=== PATIENT | male | born 1965 | race Two or more races ===

== ENCOUNTER 2017-07-26 18:41 | Emergency (ER) | payer MEDICAID ==
[~2017-07-26] VITALS: Ht 177.8 cm; Wt 110.0 kg
[~2017-07-26 18:41] MED LIST: HYDR-569 PO
[2017-07-26 21:56] VITALS: BP 128/62
== END 2017-07-26 22:08 | disposition home or self-care (01) ==
LOC: ER 18:41
DX: T59.891A Toxic effect of other specified gases, fumes and vapors, accidental (unintentional), initial encounter (principal); S80.212A Abrasion, left knee, initial encounter; E11.9 Type 2 diabetes mellitus without complications; G89.29 Other chronic pain; F12.10 Cannabis abuse, uncomplicated; F15.10 Other stimulant abuse, uncomplicated; Z86.14 Personal history of Methicillin resistant Staphylococcus aureus infection; Z59.0 Homelessness; Z98.890 Other specified postprocedural states; Z79.899 Other long term (current) drug therapy; X58.XXXA Exposure to other specified factors, initial encounter; Y93.89 Activity, other specified; Y92.89 Other specified places as the place of occurrence of the external cause; Y99.8 Other external cause status
CPT/HCPCS: 99284; J7030

== ENCOUNTER 2017-11-03 14:36 | Inpatient (IN) | payer MEDICAID ==
[~2017-11-03] VITALS: Ht 180.3 cm; Wt 140.0 kg
[2017-11-03] MEDS ORDERED: CefTRIAXone 2gm/D5W 50ml 50 ML IV ONE (15:15)
[2017-11-03] MEDS ORDERED: vancomycin/NS 1 GM ADD-VANTAGE 250 ML IV ONE (15:15)
[2017-11-03] MEDS ORDERED: normal saline 1000ML IV soln IVB ONE (15:15)
[2017-11-03 15:16] LABS: BASOPHILS % (AUTO) 0.1 % (0-1); EOSINOPHILS % (AUTO) 0.2 % (0-6); HEMATOCRIT 38.5 % (42.0-52.0); HEMOGLOBIN 13.3 g/dl (14.0-17.9); LYMPHOCYTES # (AUTO) 0.4 X10'3 (1.1-4.8); LYMPHOCYTES % (AUTO) 5.9 % (21-51); MEAN CORPUSCULAR HEMOGLOBIN 29.8 PG (27.0-31.0); MEAN CORPUSCULAR HGB CONC 34.4 % (33.0-36.5); MEAN CORPUSCULAR VOLUME 86.8 FL (78-98); MEAN PLATELET VOLUME 7.7 FL (7.4-10.4); MONOCYTES # (AUTO) 0.1 X10'3 (0-0.9); MONOCYTES % (AUTO) 1.7 % (2-12); NEUTROPHILS # (AUTO) 6.3 X10'3 (1.8-7.7); NEUTROPHILS % (AUTO) 92.1 % (42-75); PLATELET COUNT 169 X10'3 (140-440); RED BLOOD COUNT 4.44 X10'6 (4.70-6.10); RED CELL DISTRIBUTION WIDTH 14.3 % (11.5-14.5); WHITE BLOOD COUNT 6.9 X10'3 (4.5-11.0)
[2017-11-03 15:32] LABS: INR 1.1 INR; PARTIAL THROMBOPLASTIN TIME 28 SECONDS (22-32); PROTHROMBIN TIME 11.5 SECONDS (9.0-12.0)
[2017-11-03 15:40] LABS: ALANINE AMINOTRANSFERASE 17 U/L (12-78); ALBUMIN 2.8 G/DL (3.4-5.0); ALBUMIN/GLOBULIN RATIO 0.5 (1.1-1.5); ALKALINE PHOSPHATASE 117 IU/L (46-116); ANION GAP 8 (8-16); ASPARTATE AMINO TRANSFERASE 27 U/L (10-37); BILIRUBIN,TOTAL 2.3 MG/DL (0.1-1.0); BLOOD UREA NITROGEN 11 MG/DL (7-18); BUN/CREATININE RATIO 9.9 (5.4-32.0); CALCIUM 8.9 MG/DL (8.5-10.1); CHLORIDE 98 MMOL/L (99-107); CREATININE 1.11 MG/DL (0.60-1.10); GLUCOSE 193 MG/DL (70-104); POTASSIUM 3.6 MMOL/L (3.5-5.1); SODIUM 131 MMOL/L (135-145); TOTAL CARBON DIOXIDE 24.9 MMOL/L (24-32); TOTAL PROTEIN 8.4 G/DL (6.4-8.2); eGFR 70 ML/MIN
[2017-11-03 16:00] LABS: TOTAL CELLS COUNTED 100
[2017-11-03 16:01] LABS: ANISOCYTOSIS FEW; PLATELET ESTIMATE NORMAL; POLYCHROMASIA FEW
[2017-11-03 16:59] LABS: ETHANOL < 0.010 GM/DL (0.0-0.010)
[2017-11-03] MEDS ORDERED: BACDS PO (18:20)
[2017-11-03] MEDS ORDERED: INSU100V11 SQ (18:20)
[2017-11-03] MEDS ORDERED: MELO-100 PO (18:20)
[2017-11-03] MEDS ORDERED: MESSAGE TO PHARMACY PO ONE (18:55)
[2017-11-03] MEDS ORDERED: glucagon, human recombinant 1mg kit SUBCUT PRN (18:55)
[2017-11-03] MEDS ORDERED: potassium Cl 20 mEq SR tablet PO PRN (18:55)
[2017-11-03] MEDS ORDERED: magnesium 4gm in 100ml NS 100 ML IV PRN (18:55)
[2017-11-03] MEDS ORDERED: potassium Cl 40MEQ/NS 500ml 500 ML IV PRN ×2 (18:55)
[2017-11-03] MEDS ORDERED: dextrose ORAL solution 15 GM/59 ML bottle PO PRN ×2 (18:55)
[2017-11-03] MEDS ORDERED: magnesium 1gm/100ml D5W IVPB 100 ML IV PRN (18:55)
[2017-11-03] MEDS ORDERED: magnesium Cl slow-release 64mg tablet PO PRN (18:55)
[2017-11-03] MEDS ORDERED: magnesium hydroxide 30ml (MOM) UD suspension PO PRN (18:55)
[2017-11-03] MEDS ORDERED: HYDROcodone/acetaminophen 5mg/325mg tablet PO PRN (18:55)
[2017-11-03] MEDS ORDERED: ondansetron/PF 4mg/2ml inj IV PRN (18:55)
[2017-11-03] MEDS ORDERED: mag hydrox/Alum hydrox/simeth 30ml oral suspension PO PRN (18:55)
[2017-11-03] MEDS ORDERED: morphine 4 MG/ML inj SYRINge IV PRN (18:55)
[2017-11-03] MEDS ORDERED: acetaminophen 325mg tablet PO PRN ×2 (18:55)
[2017-11-03] MEDS ORDERED: dextrose 50%-water 50ml dispensing syringe IV PRN ×2 (18:55)
[2017-11-03 19:26] LABS: CLARITY,URINE SLIGHTLY CLOUDY (Clear); COLOR,URINE AMBER (Yellow); GLUCOSE, URINE 100 mg/dl (Neg); KETONES,URINE NEGATIVE (Neg); LEUKOCYTE ESTERASE ,URINE NEGATIVE (Neg); NITRITES, URINE NEGATIVE (Neg); OCCULT BLOOD,URINE LARGE (Neg); PH,URINE 5.5 (4.8-8.0); PROTEIN,URINE >=300 mg/dl (Neg)
[2017-11-03 19:27] LABS: UA COLLECTION TYPE CLN CATCH MIDSTREAM
[2017-11-03 19:33] LABS: URINE AMPHETAMINE SCREEN POSITIVE (Neg); URINE BARBITUATE SCREEN NEGATIVE (Neg); URINE BENZODIAZEPINES SCREEN NEGATIVE (Neg); URINE CANNABINOID SCREEN POSITIVE (Neg); URINE COCAINE SCREEN NEGATIVE (Neg); URINE METHADONE SCREEN NEGATIVE (Neg); URINE OPIATE SCREEN NEGATIVE (Neg); URINE PHENCYCLIDINE SCREEN NEGATIVE (Neg)
[2017-11-03 19:38] LABS: HEMOGLOBIN A1C 6.6 % (4.5-6.2)
[2017-11-03 19:44] LABS: COARSE GRANULAR CAST 0-3 /LPF (NEGATIVE); MUCUS STRANDS MANY /LPF (Neg); SQUAMOUS EPITHELIAL CELL,UR MODERATE /LPF (FEW)
[2017-11-03 19:46] LABS: AMORPHOUS URATES 2+; BACTERIA,URINE 1+ /HPF (Neg)
[2017-11-03] MEDS: heparin, porcine 5000 units/ml vial SQ SCH (20:17)
[2017-11-03] MEDS: insulin glargine (Lantus) pen - multi-dose SQ SCH (21:00)
[2017-11-03] MEDS ORDERED: temazepam 15mg capsule PO PRN (21:00)
[2017-11-03 22:00] VITALS: BP 117/62
[2017-11-04] VITALS: BP 101/54
[2017-11-04 05:57] LABS: ALBUMIN 1.9 G/DL (3.4-5.0); ANION GAP 5 (8-16); BLOOD UREA NITROGEN 11 MG/DL (7-18); BUN/CREATININE RATIO 13.6 (5.4-32.0); CALCIUM 8.1 MG/DL (8.5-10.1); CHLORIDE 103 MMOL/L (99-107); CREATININE 0.81 MG/DL (0.60-1.10); GLUCOSE 163 MG/DL (70-104); MAGNESIUM 1.7 MG/DL (1.5-2.4); POTASSIUM 3.3 MMOL/L (3.5-5.1); SODIUM 135 MMOL/L (135-145); TOTAL CARBON DIOXIDE 26.7 MMOL/L (24-32); eGFR > 90 ML/MIN
[2017-11-04 07:00] VITALS: BP 115/62
[2017-11-04] MEDS: K and/or MAG REPLACEMENT MC SCH (08:00)
[2017-11-04] MEDS: potassium Cl 20 mEq SR tablet PO PRN ×2 (09:13→21:04)
[2017-11-04] MEDS: heparin, porcine 5000 units/ml vial SQ SCH ×2 (09:15→20:00)
[2017-11-04 09:36] LABS: BASOPHILS % (AUTO) 0 % (0-1); EOSINOPHILS % (AUTO) 1.4 % (0-6); HEMATOCRIT 31.5 % (42.0-52.0); HEMOGLOBIN 10.8 g/dl (14.0-17.9); LYMPHOCYTES # (AUTO) 0.2 X10'3 (1.1-4.8); LYMPHOCYTES % (AUTO) 9.8 % (21-51); MEAN CORPUSCULAR HGB CONC 34.3 % (33.0-36.5); MEAN CORPUSCULAR VOLUME 87.5 FL (78-98); MEAN PLATELET VOLUME 7.8 FL (7.4-10.4); MONOCYTES # (AUTO) 0.1 X10'3 (0-0.9); MONOCYTES % (AUTO) 3.2 % (2-12); NEUTROPHILS # (AUTO) 1.9 X10'3 (1.8-7.7); NEUTROPHILS % (AUTO) 85.6 % (42-75); RED BLOOD COUNT 3.59 X10'6 (4.70-6.10); RED CELL DISTRIBUTION WIDTH 14.9 % (11.5-14.5)
[2017-11-04 10:24] LABS: PLATELET COUNT 81 X10'3 (140-440); WHITE BLOOD COUNT 2.2 X10'3 (4.5-11.0)
[2017-11-04] MEDS: morphine 4 MG/ML inj SYRINge IV PRN ×2 (10:33→21:03)
[2017-11-04 11:54] LABS: TOTAL CELLS COUNTED 100
[2017-11-04 11:55] LABS: ANISOCYTOSIS FEW; PLATELET ESTIMATE DECREASED; POLYCHROMASIA FEW; ROULEAUX 1+
[2017-11-04 12:00] VITALS: BP 112/64
[2017-11-04] MEDS ORDERED: iohexol 300mg/ml 100ml inj. ONE (18:13)
[2017-11-04 20:00] VITALS: BP 153/75
[2017-11-04] MEDS: insulin glargine (Lantus) pen - multi-dose SQ SCH (21:00)
[2017-11-05] VITALS: BP 112/59
[2017-11-05 05:44] LABS: HEMATOCRIT 32.4 % (42.0-52.0); HEMOGLOBIN 10.8 g/dl (14.0-17.9); MEAN CORPUSCULAR HEMOGLOBIN 29.5 PG (27.0-31.0); MEAN CORPUSCULAR HGB CONC 33.2 % (33.0-36.5); MEAN CORPUSCULAR VOLUME 88.8 FL (78-98); MEAN PLATELET VOLUME 7.9 FL (7.4-10.4); PLATELET COUNT 84 X10'3 (140-440); RED BLOOD COUNT 3.65 X10'6 (4.70-6.10); RED CELL DISTRIBUTION WIDTH 15.3 % (11.5-14.5); WHITE BLOOD COUNT 1.9 X10'3 (4.5-11.0)
[2017-11-05 06:13] LABS: ALBUMIN 1.8 G/DL (3.4-5.0); ANION GAP 6 (8-16); BLOOD UREA NITROGEN 11 MG/DL (7-18); BUN/CREATININE RATIO 13.9 (5.4-32.0); CALCIUM 8.2 MG/DL (8.5-10.1); CHLORIDE 102 MMOL/L (99-107); CREATININE 0.79 MG/DL (0.60-1.10); GLUCOSE 189 MG/DL (70-104); MAGNESIUM 1.6 MG/DL (1.5-2.4); POTASSIUM 3.7 MMOL/L (3.5-5.1); SODIUM 134 MMOL/L (135-145); TOTAL CARBON DIOXIDE 26.4 MMOL/L (24-32); eGFR > 90 ML/MIN
[2017-11-05 07:13] LABS: PLATELET ESTIMATE DECREASED; TOTAL CELLS COUNTED 100
[2017-11-05 07:14] LABS: ANISOCYTOSIS 1+; POLYCHROMASIA FEW
[2017-11-05 07:15] VITALS: BP 109/43
[2017-11-05] MEDS: K and/or MAG REPLACEMENT MC SCH (08:00)
[2017-11-05] MEDS: heparin, porcine 5000 units/ml vial SQ SCH ×2 (08:00→19:35)
[2017-11-05] MEDS: insulin Lispro (HumaLOG) vial - multi-dose SQ SCH ×3 (10:11→18:52)
[2017-11-05 11:39] VITALS: BP 109/53
[2017-11-05 18:40] VITALS: BP 105/62
[2017-11-05] MEDS: HYDROcodone/acetaminophen 10/325mg tab PO PRN (19:43)
[2017-11-05] MEDS: insulin glargine (Lantus) pen - multi-dose SQ SCH (21:31)
[2017-11-06] VITALS: BP 128/73
[2017-11-06] MEDS: HYDROcodone/acetaminophen 10/325mg tab PO PRN (03:36)
[2017-11-06] MEDS ORDERED: VANCOMYCIN LEVEL IV ONE (04:30)
[2017-11-06 05:22] LABS: BASOPHILS % (AUTO) 0.7 % (0-1); EOSINOPHILS # (AUTO) 0.1 X10'3 (0-0.9); EOSINOPHILS % (AUTO) 4.9 % (0-6); HEMATOCRIT 34.3 % (42.0-52.0); HEMOGLOBIN 11.6 g/dl (14.0-17.9); LYMPHOCYTES # (AUTO) 0.8 X10'3 (1.1-4.8); LYMPHOCYTES % (AUTO) 35.7 % (21-51); MEAN CORPUSCULAR HEMOGLOBIN 29.6 PG (27.0-31.0); MEAN CORPUSCULAR HGB CONC 33.7 % (33.0-36.5); MEAN CORPUSCULAR VOLUME 87.7 FL (78-98); MONOCYTES # (AUTO) 0.1 X10'3 (0-0.9); MONOCYTES % (AUTO) 5.8 % (2-12); NEUTROPHILS # (AUTO) 1.2 X10'3 (1.8-7.7); NEUTROPHILS % (AUTO) 52.9 % (42-75); PLATELET COUNT 118 X10'3 (140-440); RED BLOOD COUNT 3.91 X10'6 (4.70-6.10); RED CELL DISTRIBUTION WIDTH 14.6 % (11.5-14.5); WHITE BLOOD COUNT 2.4 X10'3 (4.5-11.0)
[2017-11-06 05:39] LABS: ANION GAP 3 (8-16); BLOOD UREA NITROGEN 9 MG/DL (7-18); CALCIUM 8.3 MG/DL (8.5-10.1); CHLORIDE 103 MMOL/L (99-107); CREATININE 0.69 MG/DL (0.60-1.10); GLUCOSE 129 MG/DL (70-104); MAGNESIUM 1.7 MG/DL (1.5-2.4); POTASSIUM 3.9 MMOL/L (3.5-5.1); SODIUM 136 MMOL/L (135-145); TOTAL CARBON DIOXIDE 30.5 MMOL/L (24-32); VANCOMYCIN,TROUGH 16.7 UG/ML (6.0-14.0); eGFR > 90 ML/MIN
[2017-11-06 06:22] LABS: GIANT PLATELET FEW; PLATELET ESTIMATE DECREASED; TOTAL CELLS COUNTED 100
[2017-11-06 07:51] VITALS: BP 106/60
[2017-11-06] MEDS: K and/or MAG REPLACEMENT MC SCH (08:00)
[2017-11-06] MEDS: heparin, porcine 5000 units/ml vial SQ SCH ×2 (08:00→19:35)
[2017-11-06] MEDS: insulin Lispro (HumaLOG) vial - multi-dose SQ SCH ×3 (08:40→18:50)
[2017-11-06] MEDS: ciprofloxacin 250mg tablet PO SCH ×2 (13:41→22:09)
[2017-11-06] MEDS: metroNIDAZOLE 500mg tablet PO SCH ×3 (13:41→23:57)
[2017-11-06] MEDS: linezolid 600mg tablet PO SCH ×2 (15:11→19:34)
[2017-11-06 15:37] VITALS: BP 103/66
[2017-11-06] MEDS ORDERED: piperacillin/tazo 4.5gm/100ml 100 ML IV SCH (16:00)
[2017-11-06 18:50] VITALS: BP 106/64
[2017-11-06] MEDS: insulin glargine (Lantus) pen - multi-dose SQ SCH (21:01)
[2017-11-07] VITALS: BP 143/80
[2017-11-07 05:23] LABS: BASOPHILS % (AUTO) 0.5 % (0-1); EOSINOPHILS # (AUTO) 0.2 X10'3 (0-0.9); EOSINOPHILS % (AUTO) 5.4 % (0-6); HEMATOCRIT 36.7 % (42.0-52.0); HEMOGLOBIN 12.3 g/dl (14.0-17.9); LYMPHOCYTES % (AUTO) 34.3 % (21-51); MEAN CORPUSCULAR HEMOGLOBIN 29.3 PG (27.0-31.0); MEAN CORPUSCULAR HGB CONC 33.6 % (33.0-36.5); MEAN CORPUSCULAR VOLUME 87.4 FL (78-98); MEAN PLATELET VOLUME 7.9 FL (7.4-10.4); MONOCYTES # (AUTO) 0.2 X10'3 (0-0.9); MONOCYTES % (AUTO) 5.4 % (2-12); NEUTROPHILS # (AUTO) 1.6 X10'3 (1.8-7.7); NEUTROPHILS % (AUTO) 54.4 % (42-75); PLATELET COUNT 146 X10'3 (140-440); RED CELL DISTRIBUTION WIDTH 14.7 % (11.5-14.5); WHITE BLOOD COUNT 2.9 X10'3 (4.5-11.0)
[2017-11-07 05:43] LABS: ALBUMIN 2.1 G/DL (3.4-5.0); ANION GAP 6 (8-16); BLOOD UREA NITROGEN 12 MG/DL (7-18); BUN/CREATININE RATIO 14.8 (5.4-32.0); CALCIUM 8.9 MG/DL (8.5-10.1); CHLORIDE 100 MMOL/L (99-107); CREATININE 0.81 MG/DL (0.60-1.10); GLUCOSE 121 MG/DL (70-104); MAGNESIUM 1.6 MG/DL (1.5-2.4); POTASSIUM 3.8 MMOL/L (3.5-5.1); SODIUM 134 MMOL/L (135-145); TOTAL CARBON DIOXIDE 27.6 MMOL/L (24-32); eGFR > 90 ML/MIN
[2017-11-07 05:51] LABS: PLATELET ESTIMATE NORMAL; TOTAL CELLS COUNTED 100
[2017-11-07 07:00] VITALS: BP 118/74
[2017-11-07] MEDS: K and/or MAG REPLACEMENT MC SCH (08:00)
[2017-11-07] MEDS: insulin Lispro (HumaLOG) vial - multi-dose SQ SCH (08:45)
[2017-11-07] MEDS: metroNIDAZOLE 500mg tablet PO SCH (08:46)
[2017-11-07] MEDS: linezolid 600mg tablet PO SCH (08:46)
[2017-11-07] MEDS: heparin, porcine 5000 units/ml vial SQ SCH (08:46)
[2017-11-07] MEDS ORDERED: LINE600T32 PO (09:41)
[2017-11-07] MEDS ORDERED: METR500T4 PO (09:41)
[2017-11-07] MEDS ORDERED: CIPR250T4 PO (09:41)
[2017-11-07 11:00] VITALS: BP 118/70
[2017-11-07] MEDS: ciprofloxacin 250mg tablet PO SCH (11:06)
== END 2017-11-07 13:50 | disposition home or self-care (01) | DRG 720 ==
LOC: ER 14:37 → ED HOLD 18:53 → SUR 3N 21:40
PROVIDERS: ADMIT Internal Medicine; ATTEND Internal Medicine
PROC: BQ2S1ZZ Computerized Tomography (CT Scan) of Left Lower Extremity using Low Osmolar Contrast (ICD-10-PCS; principal; 2017-11-04)
PROC: BQ2R1ZZ Computerized Tomography (CT Scan) of Right Lower Extremity using Low Osmolar Contrast (ICD-10-PCS; 2017-11-04)
DX: A40.9 Streptococcal sepsis, unspecified (principal); D69.6 Thrombocytopenia, unspecified; E46 Unspecified protein-calorie malnutrition; Z68.41 Body mass index [BMI] 40.0-44.9, adult; E66.01 Morbid (severe) obesity due to excess calories; K74.60 Unspecified cirrhosis of liver; N39.0 Urinary tract infection, site not specified; B19.20 Unspecified viral hepatitis C without hepatic coma; F12.90 Cannabis use, unspecified, uncomplicated; L03.115 Cellulitis of right lower limb; B95.2 Enterococcus as the cause of diseases classified elsewhere; B96.1 Klebsiella pneumoniae [K. pneumoniae] as the cause of diseases classified elsewhere; B96.5 Pseudomonas (aeruginosa) (mallei) (pseudomallei) as the cause of diseases classified elsewhere; B95.5 Unspecified streptococcus as the cause of diseases classified elsewhere; I25.10 Atherosclerotic heart disease of native coronary artery without angina pectoris; E11.9 Type 2 diabetes mellitus without complications; D64.9 Anemia, unspecified; F15.10 Other stimulant abuse, uncomplicated; L03.116 Cellulitis of left lower limb; G89.29 Other chronic pain; M54.9 Dorsalgia, unspecified; Z59.0 Homelessness; Z95.1 Presence of aortocoronary bypass graft; Z72.89 Other problems related to lifestyle; Z86.14 Personal history of Methicillin resistant Staphylococcus aureus infection
CPT/HCPCS: 36415; 71045; 73701; 80048; 80053; 80202; 80305; 80320; 81001; 82948; 83036; 83605; 83735; 83880; 84145; 85025; 85610; 85730; 87040; 87070; 87077; 87088; 87186; 93306; 96365; 96368; 96374; 97110; 97116; 97530; 99285; A4353; A6209; A6223; A6253; A6255; A6446; A6449; J0696; J1644; J1815; J2270; J2543; J3370; J3490; J7030; Q9967

== ENCOUNTER 2021-04-11 17:27 | Inpatient (IN) | payer MEDICAID ==
[~2021-04-11] VITALS: Ht 177.8 cm; Wt 115.0 kg
[~2021-04-11 17:27] MED LIST changes: +DOXY100C76 PO; +GLYB2.5T4 PO; -HYDR-569 PO; +LEVO500T90 PO; +METF-1203 PO
[2021-04-11] MEDS ORDERED: ondansetron/PF 4mg/2ml inj IV ONE (18:20)
[2021-04-11] MEDS ORDERED: morphine 5 MG/ML injection IV ONE (18:20)
[2021-04-11] MEDS ORDERED: vancomycin/NS 1 GM ADD-VANTAGE 250 ML IV ONE (18:30)
[2021-04-11] MEDS ORDERED: morphine 4 MG/ML inj SYRINge IV ONE (18:30)
[2021-04-11] MEDS ORDERED: piperacillin/tazo 3.375gm/50ml 50 ML IV ONE (18:30)
[2021-04-11 18:35] LABS: BASOPHILS % (AUTO) 0.4 % (0-1); EOSINOPHILS # (AUTO) 0.1 X10'3 (0-0.9); EOSINOPHILS % (AUTO) 2.2 % (0-6); HEMATOCRIT 35.9 % (42.0-52.0); HEMOGLOBIN 11.6 g/dl (14.0-17.9); LYMPHOCYTES # (AUTO) 0.7 X10'3 (1.1-4.8); LYMPHOCYTES % (AUTO) 17.9 % (21-51); MEAN CORPUSCULAR HEMOGLOBIN 23.9 PG (27.0-31.0); MEAN CORPUSCULAR HGB CONC 32.5 g/dL (33.0-36.5); MEAN CORPUSCULAR VOLUME 73.8 FL (78-98); MEAN PLATELET VOLUME 8.6 FL (7.4-10.4); MONOCYTES # (AUTO) 0.5 X10'3 (0-0.9); MONOCYTES % (AUTO) 12.7 % (2-12); NEUTROPHILS # (AUTO) 2.5 X10'3 (1.8-7.7); NEUTROPHILS % (AUTO) 66.8 % (42-75); PLATELET COUNT 100 X10'3 (140-440); RED BLOOD COUNT 4.86 X10'6 (4.70-6.10); RED CELL DISTRIBUTION WIDTH 21.9 % (11.5-14.5); WHITE BLOOD COUNT 3.7 X10'3 (4.5-11.0)
[2021-04-11 18:45] LABS: ALANINE AMINOTRANSFERASE 17 U/L (12-78); ALBUMIN 2.6 G/DL (3.4-5.0); ALBUMIN/GLOBULIN RATIO 0.7 (1.1-1.5); ALKALINE PHOSPHATASE 89 IU/L (46-116); ANION GAP 9 (8-16); ASPARTATE AMINO TRANSFERASE 18 U/L (10-37); BILIRUBIN,TOTAL 3.3 MG/DL (0.1-1.0); BLOOD UREA NITROGEN 6 MG/DL (7-18); BUN/CREATININE RATIO 7.3 (5.4-32.0); CALCIUM 8.2 MG/DL (8.5-10.1); CHLORIDE 99 MMOL/L (99-107); CREATININE 0.82 MG/DL (0.60-1.10); GLUCOSE 307 MG/DL (70-104); MAGNESIUM 1.6 MG/DL (1.5-2.4); SODIUM 136 MMOL/L (135-145); TOTAL CARBON DIOXIDE 28.4 MMOL/L (24-32); TOTAL PROTEIN 6.3 G/DL (6.4-8.2); eGFR > 90 ML/MIN
[2021-04-11] MEDS ORDERED: normal saline 1000ML IV soln IV ONE (19:10)
[2021-04-11 19:56] LABS: ANISOCYTOSIS 3+; LARGE PLATELETS FEW; MICROCYTOSIS 1+; PLATELET ESTIMATE DECREASED
[2021-04-11 19:58] LABS: ELLIPTOCYTES FEW; TEAR DROP CELLS FEW
[2021-04-11] MEDS ORDERED: CEPH500C2 PO ×2 (21:09)
[2021-04-11] MEDS ORDERED: DOXY-411 PO ×2 (21:09)
[2021-04-11] MEDS ORDERED: POTA-207 PO ×2 (21:10)
[2021-04-11] MEDS ORDERED: potassium Cl 20 mEq SR tablet PO STA (21:13)
[2021-04-11] MEDS ORDERED: insulin regular, human 10 units/0.1 ml syringe SQ ONE (21:25)
[2021-04-12] MEDS ORDERED: ondansetron 4mg rapidly disintigrating tab PO PRN (00:15)
[2021-04-12] MEDS ORDERED: acetaminophen 650mg rectal suppository RC PRN (00:15)
[2021-04-12] MEDS ORDERED: potassium CL 10mEq/100ml bag 100 ML IV PRN (00:15)
[2021-04-12] MEDS ORDERED: HYDROcodone/acetaminophen 5mg/325mg tablet PO PRN (00:15)
[2021-04-12] MEDS ORDERED: ipratropium/albuterol 3ml nebule NEB PRN (00:15)
[2021-04-12] MEDS ORDERED: mag hydrox/Alum hydrox/simeth 30ml oral suspension PO PRN (00:15)
[2021-04-12] MEDS ORDERED: diphenhydrAMINE 25mg capsule PO PRN (00:15)
[2021-04-12] MEDS ORDERED: HYDROmorphone inj. 0.5 MG/0.5 ML DISP.SYRIN IV PRN (00:15)
[2021-04-12] MEDS ORDERED: magnesium 4gm in 100ml NS 100 ML IV PRN (00:15)
[2021-04-12] MEDS ORDERED: potassium Cl 20 mEq SR tablet PO PRN (00:15)
[2021-04-12] MEDS ORDERED: morphine 2 MG/ML inj. syringe IV PRN (00:15)
[2021-04-12] MEDS ORDERED: acetaminophen 325mg tablet PO PRN ×2 (00:15)
[2021-04-12] MEDS ORDERED: magnesium Cl slow-release 64mg tablet PO PRN (00:15)
[2021-04-12] MEDS ORDERED: diphenhydrAMINE 50 mg/ml inj IV PRN (00:15)
[2021-04-12] MEDS ORDERED: magnesium hydroxide 30ml (MOM) UD suspension PO PRN (00:15)
[2021-04-12] MEDS ORDERED: bisacodyl 10mg suppository rectal RC PRN (00:15)
[2021-04-12] MEDS ORDERED: ondansetron/PF 4mg/2ml inj IV PRN (00:15)
[2021-04-12] MEDS ORDERED: magnesium 2GM in 50ml NS 50 ML IV PRN (00:15)
[2021-04-12] MEDS ORDERED: glucagon, human recombinant 1mg kit SUBCUT PRN (00:25)
[2021-04-12] MEDS ORDERED: MESSAGE TO PHARMACY PO ONE (00:25)
[2021-04-12] MEDS ORDERED: dextrose ORAL solution 15 GM/59 ML bottle PO PRN ×2 (00:25)
[2021-04-12] MEDS ORDERED: dextrose 50%-water 50ml dispensing syringe IV PRN ×2 (00:25)
[2021-04-12] MEDS: piperacillin/tazo 3.375gm/50ml 50 ML IV SCH ×4 (00:53→23:09)
[2021-04-12] MEDS: normal saline 1000ml 1,000 ML IV SCH ×3 (00:55→17:20)
[2021-04-12 01:14] LABS: HEMOGLOBIN A1C 8.1 % (4.5-6.2)
[2021-04-12 01:20] LABS: PHOSPHORUS 1.9 MG/DL (2.3-4.5)
--- NOTE | 2021-04-12 03:27 | NUR ---
Moved patient to hospital bed w/o problem.
[2021-04-12] MEDS: vancomycin/NS 1 GM ADD-VANTAGE 250 ML IV SCH ×2 (06:00→17:10)
[2021-04-12] MEDS ORDERED: sodium phosphate inj. 15 MMOL in dextrose 5%-water 250 ML IV PRN (06:20)
[2021-04-12] MEDS ORDERED: Neutra Phos packet PO PRN (06:20)
[2021-04-12] MEDS ORDERED: sodium phosphate inj. 30 MMOL in dextrose 5%-water 250 ML IV PRN (06:20)
[2021-04-12] MEDS: docusate sod 100mg capsule PO SCH ×2 (06:40→19:13)
[2021-04-12] MEDS: heparin, porcine 5000 units/ml vial SQ SCH ×2 (07:54→19:21)
[2021-04-12] MEDS: pantoprazole 40mg Tablet.DR PO SCH (07:54)
[2021-04-12] MEDS: K and/or MAG REPLACEMENT MC SCH ×2 (08:14→20:00)
--- NOTE | 2021-04-12 08:28 | NUR ---
BREAKFAST TRAY TO BEDSIDE.
[2021-04-12 08:34] LABS: BASOPHILS % (AUTO) 0.5 % (0-1); EOSINOPHILS # (AUTO) 0.2 X10'3 (0-0.9); EOSINOPHILS % (AUTO) 5.6 % (0-6); HEMATOCRIT 34.1 % (42.0-52.0); LYMPHOCYTES # (AUTO) 0.8 X10'3 (1.1-4.8); LYMPHOCYTES % (AUTO) 26.8 % (21-51); MEAN CORPUSCULAR HEMOGLOBIN 24.2 PG (27.0-31.0); MEAN CORPUSCULAR HGB CONC 32.3 g/dL (33.0-36.5); MEAN CORPUSCULAR VOLUME 75.1 FL (78-98); MEAN PLATELET VOLUME 9.3 FL (7.4-10.4); MONOCYTES # (AUTO) 0.4 X10'3 (0-0.9); MONOCYTES % (AUTO) 12.5 % (2-12); NEUTROPHILS # (AUTO) 1.7 X10'3 (1.8-7.7); NEUTROPHILS % (AUTO) 54.6 % (42-75); PLATELET COUNT 105 X10'3 (140-440); RED BLOOD COUNT 4.54 X10'6 (4.70-6.10); RED CELL DISTRIBUTION WIDTH 22.4 % (11.5-14.5); WHITE BLOOD COUNT 3.1 X10'3 (4.5-11.0)
[2021-04-12 08:51] LABS: APTT 28 SECONDS (22-32)
[2021-04-12 09:04] LABS: ALANINE AMINOTRANSFERASE 12 U/L (12-78); ALBUMIN 2.1 G/DL (3.4-5.0); ALBUMIN/GLOBULIN RATIO 0.6 (1.1-1.5); ALKALINE PHOSPHATASE 68 IU/L (46-116); ANION GAP 8 (8-16); ASPARTATE AMINO TRANSFERASE 19 U/L (10-37); BILIRUBIN,TOTAL 2.5 MG/DL (0.1-1.0); BLOOD UREA NITROGEN 9 MG/DL (7-18); CALCIUM 7.3 MG/DL (8.5-10.1); CHLORIDE 104 MMOL/L (99-107); GLUCOSE 178 MG/DL (70-104); PHOSPHORUS 2.4 MG/DL (2.3-4.5); POTASSIUM 3.4 MMOL/L (3.5-5.1); SODIUM 139 MMOL/L (135-145); TOTAL CARBON DIOXIDE 27.5 MMOL/L (24-32); TOTAL PROTEIN 5.6 G/DL (6.4-8.2); eGFR > 90 ML/MIN
[2021-04-12 09:34] LABS: ANISOCYTOSIS 3+; LARGE PLATELETS FEW; MICROCYTOSIS 1+; PLATELET ESTIMATE DECREASED
[2021-04-12 09:35] LABS: POIKILOCYTOSIS 1+
[2021-04-12 10:26] LABS: CLARITY,URINE CLOUDY (Clear); COLOR,URINE YELLOW (Yellow); GLUCOSE, URINE 500 mg/dl (Neg); KETONES,URINE TRACE mg/dl (Neg); LEUKOCYTE ESTERASE ,URINE TRACE (Neg); NITRITES, URINE NEGATIVE (Neg); OCCULT BLOOD,URINE SMALL (Neg); PROTEIN,URINE 30 mg/dl (Neg)
[2021-04-12 10:32] LABS: UA COLLECTION TYPE URINAL
[2021-04-12 10:34] LABS: WBC,URINE TNTC /HPF (0-4); YEAST MANY /HPF (NEGATIVE)
[2021-04-12 10:38] LABS: RBC,URINE 0-2 /HPF (0-2)
[2021-04-12 10:39] LABS: BACTERIA,URINE 1+ /HPF (Neg); MUCUS STRANDS FEW /LPF (Neg); SQUAMOUS EPITHELIAL CELL,UR FEW /LPF (FEW)
[2021-04-12] MEDS: HYDROcodone/acetaminophen 10/325mg tab PO PRN (17:10)
--- NOTE | 2021-04-12 17:45 | NUR ---
message to dr day "PAGER ID: [phone] MESSAGE: +blood cult gram + cocci 349 Cortez~ Tianna rocha [phone]"
--- NOTE | 2021-04-12 17:52 | NUR ---
dr day called to be made aware of +BC; no new orders obtained
[2021-04-12] MEDS: insulin Lispro (HumaLOG) vial - multi-dose SQ SCH (19:11)
[2021-04-12] MEDS: potassium Cl 20 mEq SR tablet PO PRN (19:27)
[2021-04-12 20:00] VITALS: BP 121/66
[2021-04-12] MEDS ORDERED: temazepam 15mg capsule PO PRN (21:00)
[2021-04-12] MEDS: insulin glargine (Lantus) pen - multi-dose SQ SCH (21:51)
[2021-04-13 00:02] VITALS: BP 100/63
[2021-04-13] MEDS: potassium Cl 20 mEq SR tablet PO PRN ×2 (01:36→05:56)
[2021-04-13] MEDS ORDERED: VANCOMYCIN LEVEL IV ONE (05:30)
[2021-04-13] MEDS: vancomycin/NS 1 GM ADD-VANTAGE 250 ML IV SCH ×3 (05:58→22:47)
[2021-04-13 06:01] LABS: BASOPHILS % (AUTO) 0.8 % (0-1); EOSINOPHILS # (AUTO) 0.1 X10'3 (0-0.9); EOSINOPHILS % (AUTO) 5.7 % (0-6); HEMATOCRIT 32.5 % (42.0-52.0); HEMOGLOBIN 10.5 g/dl (14.0-17.9); LYMPHOCYTES # (AUTO) 0.7 X10'3 (1.1-4.8); LYMPHOCYTES % (AUTO) 33.8 % (21-51); MEAN CORPUSCULAR HEMOGLOBIN 24.1 PG (27.0-31.0); MEAN CORPUSCULAR HGB CONC 32.2 g/dL (33.0-36.5); MEAN CORPUSCULAR VOLUME 74.9 FL (78-98); MEAN PLATELET VOLUME 8.6 FL (7.4-10.4); MONOCYTES # (AUTO) 0.2 X10'3 (0-0.9); MONOCYTES % (AUTO) 11.4 % (2-12); NEUTROPHILS % (AUTO) 48.3 % (42-75); PLATELET COUNT 83 X10'3 (140-440); RED BLOOD COUNT 4.34 X10'6 (4.70-6.10); RED CELL DISTRIBUTION WIDTH 23.1 % (11.5-14.5); WHITE BLOOD COUNT 2.1 X10'3 (4.5-11.0)
[2021-04-13 06:14] LABS: ALANINE AMINOTRANSFERASE 16 U/L (12-78); ALBUMIN/GLOBULIN RATIO 0.6 (1.1-1.5); ALKALINE PHOSPHATASE 64 IU/L (46-116); ANION GAP 5 (8-16); ASPARTATE AMINO TRANSFERASE 20 U/L (10-37); BILIRUBIN,TOTAL 1.7 MG/DL (0.1-1.0); BLOOD UREA NITROGEN 9 MG/DL (7-18); BUN/CREATININE RATIO 13.6 (5.4-32.0); CALCIUM 7.3 MG/DL (8.5-10.1); CHLORIDE 104 MMOL/L (99-107); CREATININE 0.66 MG/DL (0.60-1.10); GLUCOSE 135 MG/DL (70-104); POTASSIUM 3.6 MMOL/L (3.5-5.1); SODIUM 138 MMOL/L (135-145); TOTAL CARBON DIOXIDE 29.1 MMOL/L (24-32); TOTAL PROTEIN 5.5 G/DL (6.4-8.2); eGFR > 90 ML/MIN
[2021-04-13 06:15] LABS: CHOL/HDL RATIO 1.8 (0.00-4.99); CHOLESTEROL 82 MG/DL (0-200); HDL CHOLESTEROL 45 MG/DL (35-60); LDL CHOLESTEROL 38 MG/DL (50-100); PHOSPHORUS 2.8 MG/DL (2.3-4.5); TRIGLYCERIDES 42 MG/DL (20-135); VANCOMYCIN,TROUGH 3.9 UG/ML (6.0-14.0)
[2021-04-13] MEDS: normal saline 1000ml 1,000 ML IV SCH ×2 (06:15→16:15)
[2021-04-13] MEDS: K and/or MAG REPLACEMENT MC SCH ×2 (06:32→20:00)
[2021-04-13 07:00] VITALS: BP 116/50
[2021-04-13 07:03] LABS: TOTAL CELLS COUNTED 100
[2021-04-13 07:04] LABS: ANISOCYTOSIS 3+; MICROCYTOSIS 1+; PLATELET ESTIMATE DECREASED; SMUDGE CELLS 1+
[2021-04-13] MEDS: heparin, porcine 5000 units/ml vial SQ SCH ×2 (08:00→20:00)
[2021-04-13] MEDS: HYDROcodone/acetaminophen 10/325mg tab PO PRN ×2 (08:04→20:17)
[2021-04-13] MEDS: pantoprazole 40mg Tablet.DR PO SCH (08:05)
[2021-04-13] MEDS: docusate sod 100mg capsule PO SCH ×2 (08:06→20:00)
[2021-04-13] MEDS: piperacillin/tazo 3.375gm/50ml 50 ML IV SCH ×2 (08:06→17:30)
[2021-04-13 11:00] VITALS: BP 111/53
--- NOTE | 2021-04-13 13:32 | NUR ---
Initial: Pt admitted w/ severe right lower leg and foot cellulitis, bilateral pneumonia, sepsis per EMR. Pt apparently w/ open wounds on RLE though no pictures available in chart, pending WOC assessment. Pt currently on CCHO diet w/ 100% intake of first meal. Noted A1C 8.1, attempted to provide verbal education though pt was asleep and did not want to wake. Written DM ed w/ RD contact info placed in pt chart. Will continue to monitor PO trends for appropriate interventions. Recs: 1. Continue CCHO diet as tolerated 2. Consider double protein w/ meals vs ONS pending further PO 3. Bowel care per rx 4. Scaled wts Addendum: 04/13/21 at [address] Amended: Links added.
--- NOTE | 2021-04-13 13:50 | NUR ---
message to dr day "PAGER ID: [phone] MESSAGE: PLT 83. hold heparin? 349 Diego ~Tianna RN [id number]"
[2021-04-13] MEDS: insulin Lispro (HumaLOG) vial - multi-dose SQ SCH ×2 (14:05→18:38)
[2021-04-13 18:00] VITALS: BP 103/49
[2021-04-13] MEDS: insulin glargine (Lantus) pen - multi-dose SQ SCH (21:40)
[2021-04-13] MEDS: morphine 2 MG/ML inj. syringe IV PRN (22:48)
[2021-04-13 23:53] VITALS: BP 98/57
[2021-04-14] MEDS: piperacillin/tazo 3.375gm/50ml 50 ML IV SCH ×3 (01:12→17:40)
[2021-04-14] MEDS: normal saline 1000ml 1,000 ML IV SCH ×3 (01:14→22:15)
[2021-04-14] MEDS ORDERED: VANCOMYCIN LEVEL IV ONE (06:30)
[2021-04-14 07:05] LABS: BASOPHILS % (AUTO) 0.4 % (0-1); EOSINOPHILS # (AUTO) 0.1 X10'3 (0-0.9); EOSINOPHILS % (AUTO) 7.1 % (0-6); HEMATOCRIT 33.5 % (42.0-52.0); HEMOGLOBIN 10.8 g/dl (14.0-17.9); LYMPHOCYTES # (AUTO) 0.6 X10'3 (1.1-4.8); LYMPHOCYTES % (AUTO) 40.3 % (21-51); MEAN CORPUSCULAR HEMOGLOBIN 24.3 PG (27.0-31.0); MEAN CORPUSCULAR HGB CONC 32.3 g/dL (33.0-36.5); MEAN CORPUSCULAR VOLUME 75.3 FL (78-98); MONOCYTES # (AUTO) 0.2 X10'3 (0-0.9); MONOCYTES % (AUTO) 11.8 % (2-12); NEUTROPHILS # (AUTO) 0.6 X10'3 (1.8-7.7); NEUTROPHILS % (AUTO) 40.4 % (42-75); PLATELET COUNT 93 X10'3 (140-440); RED BLOOD COUNT 4.44 X10'6 (4.70-6.10); RED CELL DISTRIBUTION WIDTH 22.5 % (11.5-14.5); WHITE BLOOD COUNT 1.6 X10'3 (4.5-11.0)
[2021-04-14 07:18] LABS: ALANINE AMINOTRANSFERASE 13 U/L (12-78); ALBUMIN/GLOBULIN RATIO 0.6 (1.1-1.5); ALKALINE PHOSPHATASE 64 IU/L (46-116); ANION GAP 6 (8-16); ASPARTATE AMINO TRANSFERASE 28 U/L (10-37); BILIRUBIN,TOTAL 1.2 MG/DL (0.1-1.0); BLOOD UREA NITROGEN 8 MG/DL (7-18); BUN/CREATININE RATIO 13.6 (5.4-32.0); CALCIUM 7.6 MG/DL (8.5-10.1); CHLORIDE 106 MMOL/L (99-107); CREATININE 0.59 MG/DL (0.60-1.10); GLUCOSE 155 MG/DL (70-104); POTASSIUM 3.9 MMOL/L (3.5-5.1); SODIUM 139 MMOL/L (135-145); TOTAL CARBON DIOXIDE 26.9 MMOL/L (24-32); TOTAL PROTEIN 5.6 G/DL (6.4-8.2); VANCOMYCIN,TROUGH 11.2 UG/ML (6.0-14.0); eGFR > 90 ML/MIN
[2021-04-14] MEDS: VANCOmycin 1250MG/NS 250ml Bag 250 ML IV SCH ×2 (07:45→17:39)
[2021-04-14 08:00] VITALS: BP 103/49
[2021-04-14] MEDS: K and/or MAG REPLACEMENT MC SCH ×2 (08:00→19:45)
[2021-04-14] MEDS: heparin, porcine 5000 units/ml vial SQ SCH ×2 (08:00→22:06)
[2021-04-14 08:20] LABS: ANISOCYTOSIS 3+; MICROCYTOSIS 1+; PLATELET ESTIMATE DECREASED; TOTAL CELLS COUNTED 100
[2021-04-14] MEDS: docusate sod 100mg capsule PO SCH ×2 (09:51→20:00)
[2021-04-14] MEDS: insulin Lispro (HumaLOG) vial - multi-dose SQ SCH ×3 (09:51→19:22)
[2021-04-14] MEDS: pantoprazole 40mg Tablet.DR PO SCH (09:51)
[2021-04-14] MEDS: HYDROcodone/acetaminophen 10/325mg tab PO PRN ×2 (09:53→17:40)
[2021-04-14 11:00] VITALS: BP 110/52
--- NOTE | 2021-04-14 12:20 | NUR ---
RECOMMEND: 1. Daily bathing with no rinse skin cleanser. 2. Cream/Lotion to be applied to skin after bathing. 3. Veronica care Q shift and prn soiling followed by with Barrier Cream. 4. Turn patient Q 1-2 hrs and reposition with pillows. 5. Float heels to offload pressure.
--- NOTE | 2021-04-14 13:27 | NUR ---
F/u: Pt seen by wound care, per report pt with venous ulcers to right foot, right proximal LE, and right distal LE. Pt continues eating well with 100% PO intake on CHO controlled diet. D/w dietary to send double protein with meals for satiety. Will continue to follow and monitor need for further nutrition intervention. Recommendations: 1. Continue CHO controlled diet 2. Double eggs WB, double meat BIDLD 3. Routine bowel care 4. Scaled weight this admit; weekly scaled weights thereafter Addendum: 04/14/21 at [address] Amended: Links added.
--- NOTE | 2021-04-14 18:09 | NUR ---
dr day made aware over phone of [id number]. ok to hold
[2021-04-14 20:00] VITALS: BP 124/63
[2021-04-14] MEDS: morphine 2 MG/ML inj. syringe IV PRN (20:08)
[2021-04-14] MEDS: insulin glargine (Lantus) pen - multi-dose SQ SCH (21:34)
--- NOTE | 2021-04-14 23:56 | NUR ---
notified pharmacist surjit that last vanco dose was given at 2044 . asked if next dose should be given at midnight phamacist okay to give at midnight
[2021-04-15] VITALS: BP 119/62
[2021-04-15] MEDS: VANCOmycin 1250MG/NS 250ml Bag 250 ML IV SCH ×3 (00:04→16:36)
[2021-04-15] MEDS: HYDROcodone/acetaminophen 10/325mg tab PO PRN ×2 (00:06→10:03)
[2021-04-15] MEDS: piperacillin/tazo 3.375gm/50ml 50 ML IV SCH ×3 (01:13→16:36)
[2021-04-15] MEDS ORDERED: VANCOMYCIN LEVEL IV ONE (07:30)
[2021-04-15] MEDS: morphine 2 MG/ML inj. syringe IV PRN (07:46)
[2021-04-15] MEDS: pantoprazole 40mg Tablet.DR PO SCH (07:47)
[2021-04-15] MEDS: docusate sod 100mg capsule PO SCH ×2 (07:48→20:00)
[2021-04-15] MEDS: normal saline 1000ml 1,000 ML IV SCH (07:48)
[2021-04-15] MEDS: heparin, porcine 5000 units/ml vial SQ SCH ×2 (07:48→22:38)
[2021-04-15 08:00] VITALS: BP 137/80
[2021-04-15] MEDS: K and/or MAG REPLACEMENT MC SCH ×2 (08:00→20:00)
[2021-04-15 09:30] LABS: ALBUMIN 2.1 G/DL (3.4-5.0); ALBUMIN/GLOBULIN RATIO 0.5 (1.1-1.5); ALKALINE PHOSPHATASE 67 IU/L (46-116); ANION GAP 5 (8-16); ASPARTATE AMINO TRANSFERASE 24 U/L (10-37); BLOOD UREA NITROGEN 9 MG/DL (7-18); BUN/CREATININE RATIO 15.8 (5.4-32.0); CALCIUM 7.8 MG/DL (8.5-10.1); CHLORIDE 105 MMOL/L (99-107); CREATININE 0.57 MG/DL (0.60-1.10); GLUCOSE 172 MG/DL (70-104); SODIUM 137 MMOL/L (135-145); TOTAL CARBON DIOXIDE 26.8 MMOL/L (24-32); VANCOMYCIN,TROUGH 14.4 UG/ML (6.0-14.0); eGFR > 90 ML/MIN
[2021-04-15 09:31] LABS: EOSINOPHILS # (AUTO) 0.1 X10'3 (0-0.9); EOSINOPHILS % (AUTO) 6.1 % (0-6); HEMATOCRIT 35.7 % (42.0-52.0); HEMOGLOBIN 11.4 g/dl (14.0-17.9); LYMPHOCYTES # (AUTO) 0.7 X10'3 (1.1-4.8); LYMPHOCYTES % (AUTO) 40.8 % (21-51); MEAN CORPUSCULAR HEMOGLOBIN 24.1 PG (27.0-31.0); MEAN CORPUSCULAR VOLUME 75.3 FL (78-98); MEAN PLATELET VOLUME 8.6 FL (7.4-10.4); MONOCYTES # (AUTO) 0.2 X10'3 (0-0.9); NEUTROPHILS # (AUTO) 0.7 X10'3 (1.8-7.7); NEUTROPHILS % (AUTO) 40.1 % (42-75); PLATELET COUNT 117 X10'3 (140-440); RED BLOOD COUNT 4.74 X10'6 (4.70-6.10); RED CELL DISTRIBUTION WIDTH 22.6 % (11.5-14.5); WHITE BLOOD COUNT 1.8 X10'3 (4.5-11.0)
[2021-04-15] MEDS: insulin Lispro (HumaLOG) vial - multi-dose SQ SCH ×3 (10:29→20:23)
[2021-04-15 10:38] LABS: ALANINE AMINOTRANSFERASE 15 U/L (12-78)
[2021-04-15 11:00] VITALS: BP 95/59
[2021-04-15 11:09] LABS: ANISOCYTOSIS 3+; MICROCYTOSIS 1+; PLATELET ESTIMATE DECREASED; TOTAL CELLS COUNTED 100
[2021-04-15 11:10] LABS: ELLIPTOCYTES FEW; HYPOCHROMASIA 1+
[2021-04-15] MEDS ORDERED: CLIN-97 PO (11:46)
--- NOTE | 2021-04-15 14:51 | NUR ---
PAGER ID: [phone] MESSAGE: Jennifer-Surg [phone] Re: Chepe Cortez and his discharge
--- NOTE | 2021-04-15 14:52 | NUR ---
Please refer to case management and social service notes. Patient can't go to his aunts today because she is sick. Also, patient needs a wheelchair for discharge. Dr Carmona aware patient unable to discharge today.
[2021-04-15 20:00] VITALS: BP 140/80
[2021-04-16] VITALS: BP 130/80
[2021-04-16] MEDS: insulin glargine (Lantus) pen - multi-dose SQ SCH (00:46)
[2021-04-16] MEDS: VANCOmycin 1250MG/NS 250ml Bag 250 ML IV SCH ×2 (00:48→07:54)
[2021-04-16] MEDS: piperacillin/tazo 3.375gm/50ml 50 ML IV SCH ×2 (00:57→07:54)
[2021-04-16] MEDS: normal saline 1000ml 1,000 ML IV SCH (03:58)
--- NOTE | 2021-04-16 06:16 | NUR ---
LATE ENTRY 04/15/21 COULD NOT LOCATE CARB MENU FOR DINNER
[2021-04-16 06:44] LABS: ALANINE AMINOTRANSFERASE 16 U/L (12-78); ALBUMIN 2.1 G/DL (3.4-5.0); ALBUMIN/GLOBULIN RATIO 0.6 (1.1-1.5); ALKALINE PHOSPHATASE 70 IU/L (46-116); ANION GAP 5 (8-16); ASPARTATE AMINO TRANSFERASE 22 U/L (10-37); BASOPHILS % (AUTO) 0.8 % (0-1); BILIRUBIN,TOTAL 0.9 MG/DL (0.1-1.0); BLOOD UREA NITROGEN 8 MG/DL (7-18); BUN/CREATININE RATIO 13.6 (5.4-32.0); CHLORIDE 105 MMOL/L (99-107); CREATININE 0.59 MG/DL (0.60-1.10); EOSINOPHILS # (AUTO) 0.1 X10'3 (0-0.9); EOSINOPHILS % (AUTO) 5.1 % (0-6); GLUCOSE 171 MG/DL (70-104); HEMATOCRIT 35.5 % (42.0-52.0); HEMOGLOBIN 11.4 g/dl (14.0-17.9); LYMPHOCYTES # (AUTO) 0.7 X10'3 (1.1-4.8); LYMPHOCYTES % (AUTO) 34.9 % (21-51); MEAN CORPUSCULAR HEMOGLOBIN 24.3 PG (27.0-31.0); MEAN CORPUSCULAR HGB CONC 32.1 g/dL (33.0-36.5); MEAN CORPUSCULAR VOLUME 75.6 FL (78-98); MEAN PLATELET VOLUME 8.5 FL (7.4-10.4); MONOCYTES # (AUTO) 0.2 X10'3 (0-0.9); NEUTROPHILS % (AUTO) 49.2 % (42-75); PHOSPHORUS 2.6 MG/DL (2.3-4.5); PLATELET COUNT 125 X10'3 (140-440); POTASSIUM 3.7 MMOL/L (3.5-5.1); RED CELL DISTRIBUTION WIDTH 23.9 % (11.5-14.5); SODIUM 136 MMOL/L (135-145); TOTAL CARBON DIOXIDE 26.5 MMOL/L (24-32); TOTAL PROTEIN 5.9 G/DL (6.4-8.2); WHITE BLOOD COUNT 2.1 X10'3 (4.5-11.0); eGFR > 90 ML/MIN
[2021-04-16] MEDS: K and/or MAG REPLACEMENT MC SCH (07:43)
[2021-04-16] MEDS: docusate sod 100mg capsule PO SCH (07:54)
[2021-04-16] MEDS: heparin, porcine 5000 units/ml vial SQ SCH (07:55)
[2021-04-16] MEDS: insulin Lispro (HumaLOG) vial - multi-dose SQ SCH (08:12)
[2021-04-16] MEDS: HYDROcodone/acetaminophen 10/325mg tab PO PRN (08:22)
[2021-04-16 12:56] LABS: ANISOCYTOSIS 3+; ELLIPTOCYTES FEW; HYPOCHROMASIA 1+; MICROCYTOSIS 1+; NUCLEATED RED BLOOD CELLS 1 /100WBC (0-0); PLATELET ESTIMATE DECREASED; TOTAL CELLS COUNTED 100
[2021-04-16 12:57] LABS: SMUDGE CELLS 1+
== END 2021-04-16 15:44 | disposition home or self-care (01) | DRG 383 ==
LOC: ER 17:28 → UNDOADMIN 04-12 00:22 → ED HOLD 04-12 00:22 → SUR 3N 04-12 15:55 → ED HOLD 04-12 15:55
PROVIDERS: ADMIT Family Medicine; ATTEND Internal Medicine
DX: L03.115 Cellulitis of right lower limb (principal); D61.818 Other pancytopenia; J18.9 Pneumonia, unspecified organism; E83.39 Other disorders of phosphorus metabolism; L97.319 Non-pressure chronic ulcer of right ankle with unspecified severity; K74.69 Other cirrhosis of liver; G89.4 Chronic pain syndrome; M85.871 Other specified disorders of bone density and structure, right ankle and foot; M19.071 Primary osteoarthritis, right ankle and foot; B19.20 Unspecified viral hepatitis C without hepatic coma; Z20.822 Contact with and (suspected) exposure to COVID-19; E11.65 Type 2 diabetes mellitus with hyperglycemia; E87.6 Hypokalemia; Z89.512 Acquired absence of left leg below knee; Z59.00 Homelessness unspecified; Z87.891 Personal history of nicotine dependence; Z83.3 Family history of diabetes mellitus; Z82.49 Family history of ischemic heart disease and other diseases of the circulatory system; Z80.9 Family history of malignant neoplasm, unspecified
CPT/HCPCS: 36415; 71045; 73590; 73620; 73700; 80053; 80061; 80202; 81001; 82948; 83036; 83605; 83735; 83880; 84100; 84145; 85007; 85008; 85025; 85610; 85730; 87040; 87077; 87081; 87088; 87186; 87635; 93005; 93926; 93971; 94760; 97110; 97161; 97530; 99285; C9803; G0378; J1644; J1815; J2270; J2405; J2543; J3370; J7030